=== PATIENT | female | born 1980 | race Caucasian/White ===

== ENCOUNTER → 2020-02-15 | Outpatient (CLI) | payer OTHER | LOC: YCFC.O 15:54 | PROVIDERS: ATTEND Family Medicine | DX: R30.9 Painful micturition, unspecified (principal) ==

== ENCOUNTER 2020-02-20 01:21 | Observation (INO) | payer SELFPAY ==
[2020-02-20] MEDS ORDERED: SODIUM CHLORIDE 0.9% (FLUSH) 10 ML SYG IV PRN ×2 (01:31→07:01)
[2020-02-20] MEDS ORDERED: SODIUM CHLORIDE 0.9% 1000ML 1,000 ML IVS PRN (01:31)
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
[2020-02-20] MEDS ORDERED: fentaNYL CITRATE INJ 50 MCG/ML 2 ML AMP IV ONE (02:03)
[2020-02-20] MEDS ORDERED: POTASSIUM CHLORIDE 20 MEQ TAB PO ONE (02:37)
[2020-02-20] MEDS ORDERED: LIDOCAINE 1% W/ EPINEPHRINE 20 ML VIAL INJ ONE (02:52)
[2020-02-20] MEDS ORDERED: POVIDONE IODINE 10 % 15 ML UD TOP ONE (02:53)
[2020-02-20] MEDS ORDERED: NEOMYCIN-BACITRACIN-POLYMYXIN 0.9 GM UD TOP ONE (03:36)
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
[2020-02-20] MEDS ORDERED: HYDROmorphone HCL INJ 2 MG/ML VIAL IV ONE ×2 (04:44→09:27)
[2020-02-20] MEDS ORDERED: POTASSIUM CHLORIDE 20 MEQ TAB ONE (04:48)
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
[2020-02-20] MEDS ORDERED: ONDANSETRON INJ 4 MG/2 ML VIAL IV PRN (07:01)
[2020-02-20] MEDS ORDERED: fentaNYL CITRATE INJ 50 MCG/ML 2 ML AMP IV PRN (07:08)
[2020-02-20] MEDS ORDERED: KCL 20MEQ/0.45% NS 1,000 ML IVS ONE (07:14)
[2020-02-20] MEDS ORDERED: IV SET AND CAP CHANGE INJ INJ SCH (07:30)
[2020-02-20] MEDS: PANTOPRAZOLE SODIUM IV 40 MG VIAL IV SCH (07:59)
[2020-02-20] MEDS: LEVOTHYROXINE SODIUM 0.1 MG, LEVOTHYROXINE SODIUM 0.025 MG PO SCH ×2 (08:02)
[2020-02-20] MEDS: busPIRone HCL 5 MG TAB PO SCH ×2 (08:03→20:45)
[2020-02-20] MEDS ORDERED: LEVOTHYROXINE SODIUM 125 MCG PO SCH (09:00)
[2020-02-20] MEDS ORDERED: SODIUM CHLORIDE 0.9% (FLUSH) 10 ML SYG IV SCH (09:00)
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
[2020-02-20] MEDS ORDERED: KETOROLAC TROMETHAMINE INJ 30 MG/ML VIAL IV ONE (09:27)
[2020-02-20] MEDS ORDERED: ACETAMINOPHEN IV 1000MG 1,000 MG in PREMIX BOTTLE 1 BOTTLE IVPB ONE (09:28)
[2020-02-20] MEDS ORDERED: ACETAMINOPHEN IV 1000MG 100 ML ONE (09:39)
[2020-02-20] MEDS ORDERED: ACETAMINOPHEN IV 1000MG 1,000 MG in PREMIX BOTTLE 1 BOTTLE IVPB PRN (12:06)
[2020-02-20] MEDS: HYDROmorphone HCL INJ 2 MG/ML VIAL IV PRN ×3 (14:13→21:59)
[2020-02-20] MEDS ORDERED: ALPRAZolam 0.25 MG TAB PO ONE (14:25)
[2020-02-20] MEDS ORDERED: ALPRAZolam 0.5 MG TAB ONE (14:31)
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
--- NOTE | 2020-02-20 14:43 | PN ---
DATE: 02/20/20 SUBJECTIVE: Upon review of the scans, the sternal fracture is a small chip, less than 1 cm off the upper of the lower body with no through fracture or significant displacement. Troponins were not done, I do not believe they are indicated. #[id number] [facility]
[2020-02-20] MEDS: KETOROLAC TROMETHAMINE INJ 30 MG/ML VIAL IV SCH ×2 (14:57→20:44)
[2020-02-20] MEDS ORDERED: KETOROLAC TROMETHAMINE INJ 30 MG/ML VIAL ONE (20:20)
[2020-02-20] MEDS: SODIUM CHLORIDE 0.9% (FLUSH) 10 ML SYG IV SCH (22:08)
[2020-02-20] MEDS ORDERED: ENOXAPARIN SODIUM 40 MG/0.4 ML SYG SUBCU SCH (23:00)
[2020-02-21] MEDS: HYDROmorphone HCL INJ 2 MG/ML VIAL IV PRN ×3 (02:03→10:10)
[2020-02-21] MEDS: KETOROLAC TROMETHAMINE INJ 30 MG/ML VIAL IV SCH ×2 (02:57→08:52)
[2020-02-21] MEDS ORDERED: ACETAMINOPHEN IV 1000MG 100 ML ONE (04:28)
[2020-02-21] MEDS: LEVOTHYROXINE SODIUM 0.1 MG, LEVOTHYROXINE SODIUM 0.025 MG PO SCH ×2 (06:05)
[2020-02-21] MEDS: PANTOPRAZOLE SODIUM IV 40 MG VIAL IV SCH (06:05)
[2020-02-21] MEDS: SODIUM CHLORIDE 0.9% (FLUSH) 10 ML SYG IV SCH (08:53)
[2020-02-21] MEDS: busPIRone HCL 5 MG TAB PO SCH (08:53)
[2020-02-21 09:04] VITALS: O2SAT 98
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
[2020-02-21 13:36] VITALS: BP 112/74; TEMP 98.1
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
== END 2020-02-21 13:20 | disposition home or self-care (01) ==
LOC: ER 01:21 → MS 05:15
PROVIDERS: ADMIT Nurse Practitioner Family; ATTEND Nurse Practitioner Family
DX: S22.22XA Fracture of body of sternum, initial encounter for closed fracture (principal); S22.068A Other fracture of T7-T8 thoracic vertebra, initial encounter for closed fracture; S09.90XA Unspecified injury of head, initial encounter; S91.321A Laceration with foreign body, right foot, initial encounter; T14.8XXA Other injury of unspecified body region, initial encounter; F10.129 Alcohol abuse with intoxication, unspecified; Y90.6 Blood alcohol level of 120-199 mg/100 ml; F19.90 Other psychoactive substance use, unspecified, uncomplicated; E87.6 Hypokalemia; E03.9 Hypothyroidism, unspecified; M53.82 Other specified dorsopathies, cervical region; F41.9 Anxiety disorder, unspecified; F31.9 Bipolar disorder, unspecified; F60.3 Borderline personality disorder; F17.290 Nicotine dependence, other tobacco product, uncomplicated; Z79.890 Hormone replacement therapy; Z79.899 Other long term (current) drug therapy; Z88.0 Allergy status to penicillin; Z88.6 Allergy status to analgesic agent; Z88.8 Allergy status to other drugs, medicaments and biological substances; W22.11XA Striking against or struck by driver side automobile airbag, initial encounter; Y92.414 Local residential or business street as the place of occurrence of the external cause; Y93.89 Activity, other specified; V58.5XXA Driver of pick-up truck or van injured in noncollision transport accident in traffic accident, initial encounter
CPT/HCPCS: 12002; 96366; 96365; 96375 ×2; 96376 ×2; 96372; J3010 ×2; J1170 ×8; J1885 ×5; J2405; J7030; J1650; A4216 ×2; J3480; 80053 ×2; 80307; 85014; 85018; 36415 ×2; 82150; 81001; 80076; 85025 ×2; 80320; 84703; 83735; 85730; 85610; 87070; 71045 ×2; 71046; 72170; 73630 ×2; 70450; 72125; 71260; 74177; 86900; 86901; 86850; 99406; 94762; 99285; 93005

== ENCOUNTER 2020-02-22 16:30 | Emergency (ER) | payer SELFPAY ==
[2020-02-22] MEDS ORDERED: ONDANSETRON INJ 4 MG/2 ML VIAL IV ONE (16:52)
[2020-02-22] MEDS ORDERED: HYDROmorphone HCL INJ 2 MG/ML VIAL IV ONE ×2 (16:53→18:00)
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
[2020-02-22] MEDS ORDERED: HYDROCOD/APAP 7.5/325 (ER DISP) #3 TAB PO ONE (18:32)
[2020-02-22 19:23] VITALS: TEMP 98.1
[2020-02-22 19:24] VITALS: BP 142/95; O2SAT 99
== END 2020-02-22 19:05 | disposition home or self-care (01) ==
LOC: ER 16:30
DX: R07.89 Other chest pain (principal); S22.22XA Fracture of body of sternum, initial encounter for closed fracture; V89.2XXA Person injured in unspecified motor-vehicle accident, traffic, initial encounter; Y92.410 Unspecified street and highway as the place of occurrence of the external cause
CPT/HCPCS: J1170; J2405

== ENCOUNTER → 2020-08-31 | Outpatient (CLI) | payer MEDICAID | LOC: YCFC.O 11:48 | PROVIDERS: ATTEND Nurse Practitioner Family | DX: Z20.828 Contact with and (suspected) exposure to other viral communicable diseases (principal) ==

== ENCOUNTER → 2020-11-02 | Outpatient (CLI) | payer MEDICAID | LOC: YCFC.O 16:40 | PROVIDERS: ATTEND Family Medicine | DX: Z11.59 Encounter for screening for other viral diseases (principal); R11.2 Nausea with vomiting, unspecified; R19.7 Diarrhea, unspecified ==

== ENCOUNTER → 2020-11-18 | Outpatient (CLI) | payer MEDICAID | LOC: YCFC.O 15:40 | PROVIDERS: ATTEND Nurse Practitioner | DX: Z20.828 Contact with and (suspected) exposure to other viral communicable diseases (principal) ==